=== PATIENT | female | born 1995 | race Caucasian/White ===

== ENCOUNTER 2016-06-14 20:42 | Emergency (ER) | payer BC ==
[2016-06-14 21:26] VITALS: BP 104/72
[2016-06-14] MEDS ORDERED: Tetan/Diph/Pertus SYR(Tdap)* 0.5 ML SYR(BOOSTRIX) use SYR IM ONE ×2 (21:45→22:01)
--- NOTE | 2016-06-14 22:08 | UC ---
Skin Complaint HPI - HPI Summary HPI Summary: ONE HOURT [employer] STEPPED ON LARGE UPHOLSTRY TACK. IN HEEL OF LEFT FOOT. LAST TETANUS WAS 2008. NO PAIN WITH WEIGHT BEARING. TACK DID NOT GO COMPLETELY INTO HEEL. WAS NOT WEARING SHOES, SLIPPERS, OR FLIP FLOPS. PATIENT HAS A CONCERN FOR TETANUS UPDATE. - History of Current Complaint Chief Complaint: UCWounds Time Seen by Provider: 06/14/16 21:33 Stated Complaint: STEPPED ON A NAIL Hx Obtained From: Patient Hx Last Menstrual Period: 1 WEEK AGO Onset/Duration: Sudden Onset, Lasting Hours, Resolved Skin Exposure Onset/Duration: Hours Ago Onset Severity: Mild Current Severity: Mild Location: Discrete - LEFT HEEL Aggravating: Nothing Alleviating: Nothing Associated Signs & Symptoms: Positive: Tenderness - LEFT HEEL. Negative: Nausea , Vomiting, Fever, Chills, Rash, Drainage, Bruising Related History: Trauma - STEP ONTO UPHOLSTRY TACK WITH PARTIAL ENTRY INTO LEFT HEEL - Allergy/Home Medications Allergies/Adverse Reactions: Allergies Allergy/AdvReac Type Severity Reaction Status Date / Time Sulfa Antibiotics Allergy Severe DYSPNEA, Verified 06/14/16 21:25 HIVES Home Medications: Home Medications Control* 1 tab PO DAILY 06/14/16 [History Confirmed 06/14/16] Review of Systems Constitutional: Negative Skin: Other - STEP ONTO UPHOLSTRY TACK WITH PARTIAL ENTRY INTO LEFT HEEL Eyes: Negative ENT: Negative Respiratory: Negative Cardiovascular: Negative Gastrointestinal: Negative Genitourinary: Negative Motor: Negative Neurovascular: Negative Musculoskeletal: Negative Neurological: Negative Psychological: Negative All Other Systems Reviewed And Are Negative: Yes PMH/Surg Hx/FS Hx/Imm Hx Previously Healthy: Yes - Surgical History Surgical History: None - Family History Known Family History: Negative: Blood Disorder - Social History 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 - [employer] Alcohol Use: None Substance Use Type: None Smoking Status (MU): Never Smoked Tobacco - Immunization History Most Recent Tetanus Shot: 2008 Physical Exam Triage Information Reviewed: Yes Appearance: Well-Appearing, No Pain Distress, Well-Nourished Vital Signs: Initial Vital Signs Temp 97.9 F 06/14/16 21:19 Pulse 76 06/14/16 21:19 Resp 16 06/14/16 21:19 BP 104/72 06/14/16 21:19 Pulse Ox 100 06/14/16 21:19 Vital Signs Reviewed: Yes Eye Exam: Normal Eyes: Positive: Conjunctiva Clear ENT Exam: Normal ENT: Positive: Normal ENT inspection, Hearing grossly normal, Pharynx normal, TMs normal Dental Exam: Normal Neck exam: Normal Respiratory Exam: Normal Respiratory: Positive: Chest non-tender, Lungs clear, Normal breath sounds, No respiratory distress Cardiovascular Exam: Normal Cardiovascular: Positive: RRR, No Murmur, Pulses Normal Abdominal Exam: Normal Abdomen Description: Positive: Nontender, No Organomegaly Musculoskeletal Exam: Normal Neurological Exam: Normal Psychological Exam: Normal Skin: Positive: Other - PUNCTURE WOUND LEFT HEEL Course/Dx - Differential Diagnoses - Skin Complaint Differential Diagnoses: Foreign Body, Other - PUNCTURE WOUND - Diagnoses Provider Diagnoses: LEFT HEEL PUNCTURE WOUND. TETANUS PROPHYLAXIS Discharge - Discharge Plan Condition: Stable Disposition: HOME Patient Education Materials: Puncture Wound (ED) Referrals: [facility] [Outside] Non Staff,Doctor [Primary Care Provider] - Additional Instructions: SOAK IN WARM EPSOM SALT SOLUTION, KEEP AREA CLEAN AND PADDED Images Feet (Multiple View): 1 - PUNCTURE WOUND LEFT HEEL
== END 2016-06-14 22:17 | disposition home or self-care (01) ==
LOC: UCEAST 20:42
DX: S91.332A Puncture wound without foreign body, left foot, initial encounter (principal); W45.0XXA Nail entering through skin, initial encounter; Y93.9 Activity, unspecified; Z23 Encounter for immunization
CPT/HCPCS: 90715; 96372; 99201; G0463